=== PATIENT | female | born 1970 | race Caucasian/White ===

== ENCOUNTER 2017-11-27 16:42 | Emergency (ER) | payer SELFPAY ==
[~2017-11-27] VITALS: Ht 167.6 cm; Wt 70.3 kg
[2017-11-27 16:44] VITALS: BP 117/75
--- NOTE | 2017-11-27 16:50 | NUR ---
47 YO F BIB SELF AFTER CHEATED ON HER REQUESTING STD/HIV TESTING. PT A&O X 4. [facility] 15. CMS INTACT. AMBULATORY W/ STEADY GAIT. RESPIRATIONS EVEN AND UNLABORED AT THIS TIME. LUNG SOUNDS CLEAR BILATERALLY. PT DENIES ANY ABD PAIN/DISCOMFORT OR DYSURIA AT THIS TIME. DENIES VAGINAL ITCHING/DISCHARGE AT THIS TIME. PT REPORTS THAT THE MAY HAVE BEEN SLEEPING AROUND THE PAST WEEK OR SO WITH HER FRIEND WHOM IS ALSO IN THE ER CURRENTLY FOR VAGINAL ITCHING PER PT. ER MD HUTTON NOTIFIED. PT NEEDS MET AT THIS TIME. WILL CONTINUE TO MONITOR.
--- NOTE | 2017-11-27 17:35 | NUR ---
PATIENT ELOPED FROM FACILITY. DISCHARGE INSTRUCTIONS NOT GIVEN TO PATIENT. DR. HUTTON NOTIFIED.
--- NOTE | 2017-11-27 17:46 | NUR ---
PT JUST RETURNED TO BED 3. REPORTS THAT SHE WAS JUST OUT IN THE CAR VISITING A FRIEND. ER MD HUTTON NOTIFIED THAT PT HAS RETURNED FOR CARE.
--- NOTE | 2017-11-27 18:10 | NUR ---
PATIENT ELOPED FROM FACILITY. DISCHARGE INSTRUCTIONS NOT GIVEN TO PATIENT. DR. HUTTON NOTIFIED THAT PT LEFT AGAIN. PT HAS BEEN OUT OF BED AND LEFT THROUGH THE LOBBY FOR THE 2ND TIME. ER MD HUTTON STATED THAT PT IS NO LONGER TO BE ALLOWED BACK IF SHE IS NOT HERE FOR HER EVALUATION. ADMITTING AWARE OF SITUATION.
== END 2017-11-27 18:10 | disposition left against medical advice (07) ==
LOC: MED 16:42
DX: Z11.3 Encounter for screening for infections with a predominantly sexual mode of transmission (principal); Z53.21 Procedure and treatment not carried out due to patient leaving prior to being seen by health care provider
CPT/HCPCS: 81025